=== PATIENT | female | born 1940 | race Two or more races ===

== ENCOUNTER → 2017-08-24 | Outpatient (CLI) | payer OTHER | END | disposition home or self-care (01) | LOC: LAB 17:38 | DX: J11.89 Influenza due to unidentified influenza virus with other manifestations (principal); A49.2 Hemophilus influenzae infection, unspecified site ==

== ENCOUNTER 2018-04-26 11:05 | Outpatient (CLI) | payer OTHER | END 2018-04-26 13:47 | disposition home or self-care (01) | LOC: NUCLEAR 11:05 | DX: M85.89 Other specified disorders of bone density and structure, multiple sites (principal); Z13.820 Encounter for screening for osteoporosis; M81.0 Age-related osteoporosis without current pathological fracture ==

== ENCOUNTER 2018-07-13 09:52 | Outpatient (CLI) | payer OTHER | END 2018-07-13 10:19 | disposition home or self-care (01) | LOC: MRI 09:52 | DX: M54.5 Low back pain (principal) | CPT/HCPCS: 72148 ==

== ENCOUNTER 2019-01-22 07:32 | Outpatient (CLI) | payer OTHER | END 2019-01-22 07:47 | disposition home or self-care (01) | LOC: RAD 07:32 | DX: I11.9 Hypertensive heart disease without heart failure (principal); R06.02 Shortness of breath ==

== ENCOUNTER 2020-12-02 08:24 | Outpatient (CLI) | payer OTHER | END 2020-12-02 08:38 | disposition home or self-care (01) | LOC: RX STUDY 08:24 | PROVIDERS: ATTEND Otolaryngology | DX: R13.14 Dysphagia, pharyngoesophageal phase (principal) ==

== ENCOUNTER 2020-12-16 07:42 | Outpatient (CLI) | payer OTHER | END 2020-12-16 07:55 | disposition home or self-care (01) | LOC: MRI 07:42 | PROVIDERS: ATTEND Emergency Medicine | DX: M54.12 Radiculopathy, cervical region (principal); R27.0 Ataxia, unspecified; R51.9 Headache, unspecified | CPT/HCPCS: 70553; 72156; A9575 ==

== ENCOUNTER 2021-06-25 07:28 | Outpatient (CLI) | payer OTHER | END 2021-06-25 07:37 | disposition home or self-care (01) | LOC: SONOGRAMA 07:28 | PROVIDERS: ATTEND Specialist | DX: R10.9 Unspecified abdominal pain (principal) ==

== ENCOUNTER 2021-08-28 10:39 | Outpatient (CLI) | payer OTHER | END 2021-08-28 10:51 | disposition home or self-care (01) | LOC: SONOGRAMA 10:39 | PROVIDERS: ATTEND Otolaryngology | DX: R22.1 Localized swelling, mass and lump, neck (principal) ==

== ENCOUNTER 2021-12-12 08:39 | Outpatient (CLI) | payer OTHER | END 2021-12-12 08:47 | disposition home or self-care (01) | LOC: RAD 08:39 | DX: M54.12 Radiculopathy, cervical region (principal); M54.16 Radiculopathy, lumbar region; M62.838 Other muscle spasm ==

== ENCOUNTER → 2022-02-03 | Outpatient (CLI) | payer OTHER | END | disposition home or self-care (01) | LOC: MRI 08:48 | PROVIDERS: ATTEND Emergency Medicine | DX: M54.16 Radiculopathy, lumbar region (principal); M54.50 Low back pain, unspecified | CPT/HCPCS: 72148 ==

== ENCOUNTER 2022-03-08 08:33 | Outpatient (CLI) | payer OTHER | END 2022-03-08 08:44 | disposition home or self-care (01) | LOC: RAD 08:33 | PROVIDERS: ATTEND Emergency Medicine | DX: M21.752 Unequal limb length (acquired), left femur (principal) ==

== ENCOUNTER 2022-11-11 12:12 | Outpatient (CLI) | payer OTHER | END 2022-11-11 12:19 | disposition home or self-care (01) | LOC: RAD 12:12 | PROVIDERS: ATTEND Physical Medicine & Rehabilitation | DX: M54.59 Other low back pain (principal); M54.2 Cervicalgia; M17.0 Bilateral primary osteoarthritis of knee; M79.671 Pain in right foot ==

== ENCOUNTER 2022-12-01 11:49 | Outpatient (CLI) | payer OTHER | END 2022-12-01 11:57 | disposition home or self-care (01) | LOC: RAD 11:49 | PROVIDERS: ATTEND Physical Medicine & Rehabilitation | DX: M25.552 Pain in left hip (principal) ==

== ENCOUNTER 2022-12-08 12:00 | Outpatient (CLI) | payer OTHER | END 2022-12-08 12:11 | disposition home or self-care (01) | LOC: MRI 12:00 | PROVIDERS: ATTEND Physical Medicine & Rehabilitation | DX: D68.311 Acquired hemophilia (principal); R41.0 Disorientation, unspecified | CPT/HCPCS: 70551 ==

== ENCOUNTER 2023-05-09 09:45 | Outpatient (CLI) | payer OTHER | END 2023-05-09 09:54 | disposition home or self-care (01) | LOC: SONOGRAMA 09:45 | PROVIDERS: ATTEND Otolaryngology | DX: R22.1 Localized swelling, mass and lump, neck (principal) ==

== ENCOUNTER 2023-08-19 07:26 | Outpatient (CLI) | payer OTHER | END 2023-08-19 07:30 | disposition home or self-care (01) | LOC: RAD 07:26 | PROVIDERS: ATTEND Internal Medicine Geriatric Medicine | DX: I11.9 Hypertensive heart disease without heart failure (principal); R06.02 Shortness of breath ==

== ENCOUNTER 2023-08-29 07:35 | Outpatient (CLI) | payer OTHER | END 2023-08-29 07:37 | disposition home or self-care (01) | LOC: SONOGRAMA 07:35 | PROVIDERS: ATTEND Internal Medicine Gastroenterology | DX: R10.10 Upper abdominal pain, unspecified (principal) ==

== ENCOUNTER 2023-12-30 16:39 | Emergency (ER) | payer OTHER ==
[~2023-12-30] VITALS: Ht 152.4 cm; Wt 70.3 kg
[~2023-12-30 16:39] MED LIST: ACIDO FOLICO 1 MG.; ALTACE1.25 M1; ALTACE10 MG; AMLODIPINE; AMLODIPINE 5 MG.; AMLODIPINE-OLM1 EAC2; ATORVASTATIN CA10 MG; CEFADROXIL500 MG/5 M PO; EVISTA60 MG; HYDROCHLORIC2 MG/ML; IBUPROFEN800 MG PO; INTESTINEX680 M1 PO; KETO10TA2 PO; LEVOFLOXACIN750 MG PO; MEDROL4 MG PO; METFORMIN HCL500 M1; METFORMIN HCL500 MG; METFORMIN HYDRO25 GM; MOTION RELIEF25 MG PO; NEURIN; ORPHENADRINE C100 MG PO; SULFADIAZINE; SYNTHROID100 MCG; SYNTHROID88 MCG; VITAMIN B-12500 MC3 SL; VITAMINA D-3
[2023-12-30 19:06] LABS: HEMATOCRIT 40.4 % (36.0-45.00); HEMOGLOBIN 13.7 g/dL (12.0-15.00); MEAN CELL VOLUME 86.5 fL (80.00-100.00); MEAN CORPUSCULAR HEMOGLOBIN 29.2 pg (27.00-32.0); MEAN CORPUSCULAR HGB CONC 33.8 g/dl (32.0-36.0); PH,URINE 5.5 (5.0-8.0); PLATELET COUNT 213 K/uL (150-450); RED BLOOD COUNT 4.67 M/uL (4.00-6.00); RED CELL DISTRIBUTION WIDTH 13.9 % (11.5-14.5); URINE APPEARANCE Clear; URINE BILIRRUBIN Negative (NEGATIVE); URINE BLOOD Negative; URINE COLOR Yellow; URINE GLUCOSE Negative (NEGATIVE); URINE LEUKOCYTE Trace; URINE NITRATE Negative; URINE PROTEIN Negative (NEGATIVE); URINE UROBILINOGEN 0.2 E.U./dl
[2023-12-30 19:09] LABS: URINE BACTERIA 25.1 uL (0.0-1933); URINE EPITHELIAL CELLS 2.4 uL (0.0-38.8); URINE WBC 4.9 uL (0.0-23.2)
[2023-12-30 19:10] LABS: URINE RBC 0.9 uL (0.0-20.8)
[2023-12-30] MEDS ORDERED: CIPROFLOXACIN HCL 500 MG TABLET PO STA (20:43)
[2023-12-30] MEDS ORDERED: CIPRO500 MG PO (20:53)
== END 2023-12-30 21:11 | disposition home or self-care (01) ==
LOC: ER 16:39
DX: R42 Dizziness and giddiness (principal)

== ENCOUNTER 2024-01-18 08:38 | Emergency (ER) | payer OTHER ==
[~2024-01-18] VITALS: Ht 152.4 cm; Wt 72.6 kg
[~2024-01-18 08:38] MED LIST changes: +CIPRO500 MG PO
[2024-01-18] MEDS ORDERED: PEPCID AC20 MG (09:09)
[2024-01-18] MEDS ORDERED: KETOROLAC TROMETHAMINE 15 MG VIAL IM STA (09:32)
[2024-01-18] MEDS ORDERED: KETOROLAC TROMETHAMINE 30 MG VIAL ONE (09:43)
[2024-01-18] MEDS ORDERED: ADVIL DUAL ACT1 EACH PO (11:25)
[2024-01-18] MEDS ORDERED: CAPSAICIN42.5 GM TOP (11:25)
== END 2024-01-18 11:29 | disposition home or self-care (01) ==
LOC: ER 08:38
DX: M19.90 Unspecified osteoarthritis, unspecified site (principal); I10 Essential (primary) hypertension; E03.8 Other specified hypothyroidism
CPT/HCPCS: 73560; 96372; 99282; J1885

== ENCOUNTER 2024-03-12 09:47 | Outpatient (CLI) | payer OTHER ==
[~2024-03-12 09:47] MED LIST changes: +ADVIL DUAL ACT1 EACH PO; +CAPSAICIN42.5 GM TOP; +PEPCID AC20 MG
== END 2024-03-12 09:52 | disposition home or self-care (01) ==
LOC: RAD 09:47
PROVIDERS: ATTEND Physical Medicine & Rehabilitation
DX: M17.11 Unilateral primary osteoarthritis, right knee (principal); M17.12 Unilateral primary osteoarthritis, left knee

== ENCOUNTER 2024-05-03 11:50 | Outpatient (CLI) | payer OTHER | END 2024-05-03 11:51 | disposition home or self-care (01) | LOC: NUCLEAR 11:50 | PROVIDERS: ATTEND Psychiatry & Neurology Clinical Neurophysiology | DX: R41.89 Other symptoms and signs involving cognitive functions and awareness (principal) | CPT/HCPCS: 78803; A9557 ==

== ENCOUNTER 2024-07-12 08:51 | Emergency (ER) | payer OTHER ==
[~2024-07-12] VITALS: Ht 154.9 cm; Wt 72.1 kg
[2024-07-12] MEDS ORDERED: DONEPEZIL HCL5 MG (09:07)
[2024-07-12] MEDS ORDERED: DIPHENHYDRAMINE HCL 50 MG/ML VIAL 1ML IM STA (09:43)
[2024-07-12] MEDS ORDERED: METOCLOPRAMIDE HCL 5 MG/ML VIAL IM STA (09:44)
[2024-07-12] MEDS ORDERED: DEXAMETHASONE SODIUM PHOSPHATE 4 MG/ML VIAL IM STA (09:44)
[2024-07-12] MEDS ORDERED: KETOROLAC TROMETHAMINE 15 MG VIAL IM STA (09:44)
[2024-07-12] MEDS ORDERED: ORPHENADRINE CITRATE 30 MG/ML AMPUL IM STA (09:44)
[2024-07-12] MEDS ORDERED: DIPHENHYDRAMINE HCL 50 MG/ML VIAL 1ML ONE (10:07)
[2024-07-12] MEDS ORDERED: ORPHENADRINE CITRATE 30 MG/ML AMPUL ONE (10:08)
[2024-07-12] MEDS ORDERED: KETOROLAC TROMETHAMINE 30 MG VIAL ONE (10:08)
[2024-07-12] MEDS ORDERED: METOCLOPRAMIDE HCL 5 MG/ML VIAL ONE (10:08)
[2024-07-12] MEDS ORDERED: DEXAMETHASONE SODIUM PHOSPHATE 4 MG/ML VIAL ONE (10:09)
[2024-07-12 10:42] LABS: HEMATOCRIT 40.8 % (36.0-45.00); HEMOGLOBIN 13.4 g/dL (12.0-15.00); MEAN CELL VOLUME 85.9 fL (80.00-100.00); MEAN CORPUSCULAR HEMOGLOBIN 28.2 pg (27.00-32.0); MEAN CORPUSCULAR HGB CONC 32.8 g/dl (32.0-36.0); PLATELET COUNT 209 K/uL (150-450); RED BLOOD COUNT 4.75 M/uL (4.00-6.00); RED CELL DISTRIBUTION WIDTH 13.6 % (11.5-14.5)
[2024-07-12 11:31] LABS: CALCIUM 9.1 mg/dL (8.5-10.1); CREATININE SERUM 0.91 mg/dL (0.55-1.02); GFR 59.33; POTASSIUM 4.39 mEq/L (3.5-5.1); TSH 0.711 uIU/mL (0.358-3.74)
[2024-07-12] MEDS ORDERED: NORFLEX100MG PO (12:06)
[2024-07-12] MEDS ORDERED: MEDROLPACK PO (12:06)
[2024-07-12] MEDS ORDERED: DICLOFENAC POTA50 MG PO (12:06)
[2024-07-12] MEDS ORDERED: ANTIVERT25 M2 PO (12:06)
== END 2024-07-12 12:14 | disposition home or self-care (01) ==
LOC: ER 08:54
PROVIDERS: General Practice
DX: R53.81 Other malaise (principal); H61.21 Impacted cerumen, right ear; R42 Dizziness and giddiness; M54.2 Cervicalgia; I10 Essential (primary) hypertension; E03.8 Other specified hypothyroidism
CPT/HCPCS: 36415; 72040; 93005; 96372; 99283; J1100; J1200; J1885; J2360; J2765

== ENCOUNTER → 2024-11-24 | Emergency (ER) | payer OTHER ==
[~2024-11-24] VITALS: Ht 152.4 cm; Wt 76.2 kg
[~2024-11-24] MED LIST changes: +ANTIVERT25 M2 PO; +DICLOFENAC POTA50 MG PO; +DONEPEZIL HCL5 MG; +MEDROLPACK PO; +NORFLEX100MG PO
== END | disposition home or self-care (01) ==
LOC: ER 09:43
DX: J40 Bronchitis, not specified as acute or chronic (principal); J32.9 Chronic sinusitis, unspecified; I10 Essential (primary) hypertension

== ENCOUNTER 2025-01-10 07:12 | Outpatient (CLI) | payer OTHER | END 2025-01-10 07:13 | disposition home or self-care (01) | LOC: NUCLEAR 07:12 | PROVIDERS: ATTEND Internal Medicine Geriatric Medicine | DX: M19.90 Unspecified osteoarthritis, unspecified site (principal) | CPT/HCPCS: 78315; A9503 ==

== ENCOUNTER 2025-02-19 10:35 | Outpatient (CLI) | payer OTHER | END 2025-02-19 10:43 | disposition home or self-care (01) | LOC: TOM 10:35 | PROVIDERS: ATTEND Internal Medicine Geriatric Medicine | DX: M51.26 Other intervertebral disc displacement, lumbar region (principal); M47.26 Other spondylosis with radiculopathy, lumbar region; S22.000A Wedge compression fracture of unspecified thoracic vertebra, initial encounter for closed fracture ==

== ENCOUNTER 2025-04-19 07:21 | Outpatient (CLI) | payer OTHER | END 2025-04-19 07:29 | disposition home or self-care (01) | LOC: TOM 07:21 | PROVIDERS: ATTEND Internal Medicine Geriatric Medicine | DX: K57.20 Diverticulitis of large intestine with perforation and abscess without bleeding (principal); K57.32 Diverticulitis of large intestine without perforation or abscess without bleeding ==

== ENCOUNTER 2025-04-23 08:29 | Outpatient (CLI) | payer OTHER | END 2025-04-23 08:44 | disposition home or self-care (01) | LOC: MRI 08:29 | PROVIDERS: ATTEND Physical Medicine & Rehabilitation | DX: M54.50 Low back pain, unspecified (principal); M54.16 Radiculopathy, lumbar region | CPT/HCPCS: 72148 ==

== ENCOUNTER → 2025-05-12 | Emergency (ER) | payer OTHER ==
[~2025-05-12] VITALS: Ht 152.4 cm; Wt 72.1 kg
[~2025-05-12] MED LIST changes: +0.9 % SODIUM CHLORIDE 1,000 ML IV STA; +CEFTRIAXONE SODIUM 1,000 MG VIAL IM STA; +CEFTRIAXONE SODIUM 1,000 MG VIAL ONE; +EAR WAX DROPS15 M1 OPHT; +GRALISE600 MG PO; +PYRIDIUM DS200 MG PO; +RAMIPRIL10 MG PO
[2025-05-12 09:28] LABS: BASO % 0.5 % (0.1-1.2); EOS # 0.10 (0.04-0.54); EOS % 1.8 % (0.7-7.0); LYMPH # 1.93 (1.18-3.74); LYMPH % 34.5 % (19.3-53.1); MEAN PLATELET VOLUME 10.60 fl (9.4-12.4); MONO # 0.57 (0.24-0.82); MONO % 10.2 % (4.7-12.5); NEUT # 2.96 (1.56-6.13); NEUT % 52.8 % (34.0-71.1); RED CELL DISTRIBUTION WIDTH 13.3 % (11.6-14.4)
[2025-05-12 09:46] LABS: INR 1.06
[2025-05-12 09:53] LABS: ALT/SGPT 25 U/L (12-78); AST/SGOT 18 U/L (15-37); BILIRUBIN TOTAL 0.37 mg/dL (0.3-1.2); BUN CREA RATIO 30 (7.0-25.0); CREATININE SERUM 1.19 mg/dL (0.55-1.02); GFR 43.43; GLOBULINA 3.7 G/DL (2.4-3.5); GLUCOSE FASTING 108 mg/dL (65-100); OSMOLALITY SERUM 294 MOSM/KG (275-295)
[2025-05-12 11:03] LABS: URINE APPEARANCE Clear; URINE BILIRRUBIN Negative (NEGATIVE); URINE BLOOD Negative; URINE COLOR Dark Yellow; URINE GLUCOSE Negative (NEGATIVE); URINE KETONE Trace (NEGATIVE); URINE LEUKOCYTE Trace; URINE NITRATE Positive; URINE PROTEIN Negative (NEGATIVE); URINE UROBILINOGEN 1.0 E.U./dl
[2025-05-12 11:08] LABS: URINE BACTERIA 280.7 uL (0.0-1933); URINE CAST 1.61 uL (0.0-1.40); URINE EPITHELIAL CELLS 39.2 uL (0.0-38.8); URINE RBC 2.4 uL (0.0-20.8); URINE WBC 20.6 uL (0.0-23.2)
[2025-05-12 11:28] LABS: TYPE CELLS TRANSITIONAL; URINE MUCUS SCANT
== END | disposition home or self-care (01) ==
LOC: ER 07:24
PROVIDERS: Physician Assistant Medical
DX: H61.21 Impacted cerumen, right ear (principal); N39.0 Urinary tract infection, site not specified; R53.81 Other malaise; M51.369 Other intervertebral disc degeneration, lumbar region without mention of lumbar back pain or lower extremity pain; I10 Essential (primary) hypertension; Z85.41 Personal history of malignant neoplasm of cervix uteri
CPT/HCPCS: 36415; 70450; 72040; 93005; 96365; 96372; 99284; J0696; J7030

== ENCOUNTER 2025-06-21 12:58 | Emergency (ER) | payer OTHER ==
[~2025-06-21] VITALS: Ht 160 cm; Wt 74.8 kg
[~2025-06-21 12:58] MED LIST changes: -0.9 % SODIUM CHLORIDE 1,000 ML IV STA; -CEFTRIAXONE SODIUM 1,000 MG VIAL IM STA; -CEFTRIAXONE SODIUM 1,000 MG VIAL ONE
[2025-06-21] MEDS ORDERED: SILVADENE20 GM TOP (18:15)
== END 2025-06-21 18:49 | disposition home or self-care (01) ==
LOC: ER 12:59
DX: S40.811A Abrasion of right upper arm, initial encounter (principal); W18.39XA Other fall on same level, initial encounter; Y93.89 Activity, other specified; Y92.018 Other place in single-family (private) house as the place of occurrence of the external cause; M25.511 Pain in right shoulder; I10 Essential (primary) hypertension